=== PATIENT | female | born 1950 | race Caucasian/White ===

== ENCOUNTER 2017-07-01 13:32 | Inpatient (IN) | payer MEDICARE ==
[~2017-07-01] VITALS: Ht 165.1 cm; Wt 83.4 kg
[~2017-07-01 13:32] MED LIST: ALPR1TAB10 PO; CARV3.122 PO; CETI10TA18 PO; CHOL200040 PO; CLIN300C8 PO; HYDR-3240 PO; IBUP-1221 PO; IBUP-1222 PO; LACT1CAP4 PO; LEVO50TA5 PO; LORA-446 PO; LORA10TA62 PO; OMEP-110 PO; ONDA4TAB7 PO; PARO20TA4 PO; PHEN100C PO; PHEN300C4 PO; POLY17PO5 PO; PRED20TA PO; VERA180C2 PO; VERA180T56 PO; ZOLP5TAB6 PO
[2017-07-01] MEDS ORDERED: SODIUM CHLORIDE FLUSH 10ML SYR IVF ONE (14:30)
[2017-07-01] MEDS ORDERED: METOCLOPRAMIDE 5 MG/ML, 2ML IVPush ONE (14:30)
[2017-07-01] MEDS ORDERED: SODIUM CHLORIDE 0.9% 1,000ML IVBOLUS ONE (14:30)
[2017-07-01] MEDS ORDERED: DIPHENHYDRAMINE 50 MG/ML, 1ML IVPush ONE (14:30)
[2017-07-01] MEDS ORDERED: METOCLOPRAMIDE 5 MG/ML, 2ML ONE (14:49)
[2017-07-01] MEDS ORDERED: morphine SULFATE 10 MG/ML, 1ML ONE (14:49)
[2017-07-01] MEDS ORDERED: DIPHENHYDRAMINE 50 MG/ML, 1ML ONE (14:49)
[2017-07-01 14:57] LABS: HEMOGLOBIN 15.3 g/dL (11.7-16.4); WHITE BLOOD COUNT 6.7 x10^3/uL (3.4-10)
[2017-07-01] MEDS ORDERED: morphine SULFATE 10 MG/ML, 1ML IVPush ONE (15:00)
[2017-07-01 15:11] LABS: ASPARTATE AMINO TRANSFERASE 14 U/L (15-37); BLOOD UREA NITROGEN 13 mg/dL (7-18)
[2017-07-01 15:22] LABS: IS PT STATUS REG ER OR PRE ER? YES
[2017-07-01] MEDS ORDERED: NITROGLYCERIN 0.4 MG BOTTLE (25 TABS) SL PRN (18:00)
[2017-07-01] MEDS ORDERED: KETOROLAC 30 MG/1 ML IVPush PRN (18:00)
[2017-07-01] MEDS ORDERED: BISACODYL 10 MG SUPP PR PRN (18:00)
[2017-07-01] MEDS ORDERED: ACETAMINOPHEN 325 MG TABLET PO PRN (18:00)
[2017-07-01] MEDS ORDERED: POLYETHYLENE GLYCOL 17 GM PACKET PO PRN ×2 (18:00)
[2017-07-01] MEDS ORDERED: ONDANSETRON 4 MG TABLET PO PRN (18:00)
[2017-07-01] MEDS ORDERED: morphine SULFATE 10 MG/ML, 1ML IVPush PRN (18:00)
[2017-07-01 19:00] VITALS: BP 113/71
[2017-07-01] MEDS ORDERED: METHOCARBAMOL 750 MG TABLET PO PRN (19:00)
[2017-07-01] MEDS: CARVEDILOL 6.25 MG TABLET PO SCH (19:46)
[2017-07-01] MEDS: HEPARIN 5,000 UNITS/ML, 1ML SQ SCH (19:46)
[2017-07-01] MEDS ORDERED: OMEG1CAP6 PO (20:56)
[2017-07-01] MEDS ORDERED: CALC-60 PO (20:56)
[2017-07-01] MEDS ORDERED: HYDR25TA11 PO (20:56)
[2017-07-01] MEDS ORDERED: BACL20TA PO (20:56)
[2017-07-01] MEDS ORDERED: MULT-658 PO (20:56)
[2017-07-01] MEDS ORDERED: HYDR-3237 PO (20:56)
[2017-07-01 21:26] LABS: IS PT STATUS REG ER OR PRE ER? NO
[2017-07-01] MEDS: SODIUM CHLORIDE FLUSH 10ML SYR IVF SCH (22:02)
[2017-07-01] MEDS: ONDANSETRON ODT 4 MG PO PRN (22:03)
[2017-07-01] MEDS: HYDROcodone/APAP 5/325 TABLET PO PRN (22:34)
[2017-07-02 02:00] VITALS: BP 114/76
[2017-07-02] MEDS: HEPARIN 5,000 UNITS/ML, 1ML SQ SCH ×3 (02:10→18:05)
[2017-07-02 02:49] LABS: HEMOGLOBIN 13.6 g/dL (11.7-16.4); WHITE BLOOD COUNT 5.7 x10^3/uL (3.4-10)
[2017-07-02 03:03] LABS: BLOOD UREA NITROGEN 11 mg/dL (7-18)
[2017-07-02 03:06] LABS: IS PT STATUS REG ER OR PRE ER? NO
[2017-07-02 03:08] LABS: ASPARTATE AMINO TRANSFERASE 17 U/L (15-37)
[2017-07-02] MEDS: CARVEDILOL 6.25 MG TABLET PO SCH ×2 (05:28→18:05)
[2017-07-02 07:45] VITALS: BP 107/70
[2017-07-02] MEDS ORDERED: REGADENOSON 0.4 MG/5 ML SYRINGE ONE (08:03)
[2017-07-02] MEDS: PAROXETINE 20 MG TABLET PO SCH (08:16)
[2017-07-02] MEDS: LACTOBACILLUS CHEW TABLET PO SCH (08:16)
[2017-07-02] MEDS: SENNA/DOCUSATE TABLET PO SCH (08:16)
[2017-07-02] MEDS: CHOLECALCIFEROL 1,000 UNIT TABLET PO SCH (08:17)
[2017-07-02] MEDS: LEVOTHYROXINE 50 MCG TABLET PO SCH (08:17)
[2017-07-02] MEDS: PHENYTOIN 100 MG CAPSULE PO SCH (08:17)
[2017-07-02] MEDS: CETIRIZINE 10 MG TABLET PO SCH (08:17)
[2017-07-02] MEDS: SODIUM CHLORIDE FLUSH 10ML SYR IVF SCH ×2 (08:17→20:21)
[2017-07-02] MEDS: ONDANSETRON ODT 4 MG PO PRN (11:58)
[2017-07-02 12:05] VITALS: BP 135/84
[2017-07-02] MEDS: KETOROLAC 30 MG/1 ML IVPush SCH ×2 (17:00→20:23)
[2017-07-02 17:40] LABS: HEMATOCRIT 42.4 % (34.6-47.8); HEMOGLOBIN 14.4 g/dL (11.7-16.4)
[2017-07-02] MEDS: METHOCARBAMOL 750 MG TABLET PO SCH ×2 (18:05→20:22)
[2017-07-02 19:19] VITALS: BP 114/75
[2017-07-02] MEDS: HYDROcodone/APAP 5/325 TABLET PO PRN (20:22)
[2017-07-03 02:43] VITALS: BP 112/71
[2017-07-03] MEDS: HEPARIN 5,000 UNITS/ML, 1ML SQ SCH ×3 (03:01→17:55)
[2017-07-03] MEDS: CARVEDILOL 6.25 MG TABLET PO SCH ×2 (05:19→17:55)
[2017-07-03 05:57] LABS: BLOOD UREA NITROGEN 13 mg/dL (7-18)
[2017-07-03 07:07] VITALS: BP 102/68
[2017-07-03] MEDS: LEVOTHYROXINE 50 MCG TABLET PO SCH (09:00)
[2017-07-03] MEDS: KETOROLAC 30 MG/1 ML IVPush SCH (09:00)
[2017-07-03] MEDS: ONDANSETRON ODT 4 MG PO PRN ×2 (09:14→17:54)
[2017-07-03] MEDS: CETIRIZINE 10 MG TABLET PO SCH (09:14)
[2017-07-03] MEDS: METHOCARBAMOL 750 MG TABLET PO SCH ×3 (09:14→19:53)
[2017-07-03] MEDS: PAROXETINE 20 MG TABLET PO SCH (09:15)
[2017-07-03] MEDS: PHENYTOIN 100 MG CAPSULE PO SCH (09:15)
[2017-07-03] MEDS: LACTOBACILLUS CHEW TABLET PO SCH (09:15)
[2017-07-03] MEDS: CHOLECALCIFEROL 1,000 UNIT TABLET PO SCH (09:15)
[2017-07-03] MEDS: SENNA/DOCUSATE TABLET PO SCH (09:15)
[2017-07-03] MEDS: SODIUM CHLORIDE FLUSH 10ML SYR IVF SCH ×2 (09:17→19:54)
[2017-07-03 17:51] VITALS: BP 119/79
[2017-07-03 18:48] VITALS: BP 107/69
[2017-07-03] MEDS: HYDROcodone/APAP 5/325 TABLET PO PRN (21:26)
[2017-07-04 01:22] VITALS: BP 102/63
[2017-07-04] MEDS: HEPARIN 5,000 UNITS/ML, 1ML SQ SCH ×2 (01:45→11:54)
[2017-07-04] MEDS: CARVEDILOL 6.25 MG TABLET PO SCH (05:20)
[2017-07-04 08:29] VITALS: BP 123/85
[2017-07-04] MEDS: PAROXETINE 20 MG TABLET PO SCH (08:37)
[2017-07-04] MEDS: SODIUM CHLORIDE FLUSH 10ML SYR IVF SCH (08:37)
[2017-07-04] MEDS: LACTOBACILLUS CHEW TABLET PO SCH (08:37)
[2017-07-04] MEDS: PHENYTOIN 100 MG CAPSULE PO SCH (08:37)
[2017-07-04] MEDS: CETIRIZINE 10 MG TABLET PO SCH (08:38)
[2017-07-04] MEDS: METHOCARBAMOL 750 MG TABLET PO SCH (08:38)
[2017-07-04] MEDS: SENNA/DOCUSATE TABLET PO SCH (08:38)
[2017-07-04] MEDS: CHOLECALCIFEROL 1,000 UNIT TABLET PO SCH (08:38)
[2017-07-04] MEDS: LEVOTHYROXINE 50 MCG TABLET PO SCH (08:38)
[2017-07-04] MEDS: HYDROcodone/APAP 5/325 TABLET PO PRN (12:24)
[2017-07-04] MEDS: ONDANSETRON ODT 4 MG PO PRN (12:24)
[2017-07-04 12:40] VITALS: BP 107/69
== END 2017-07-04 15:21 | disposition home or self-care (01) | DRG 205 ==
LOC: ED 14:19 → EDIP 16:57 → 5SO 18:40 → DCLOUNGE 07-04 15:00
PROVIDERS: ADMIT Hospitalist; ATTEND Hospitalist
DX: M94.0 Chondrocostal junction syndrome [Tietze] (principal); G93.49 Other encephalopathy; J96.10 Chronic respiratory failure, unspecified whether with hypoxia or hypercapnia; E03.9 Hypothyroidism, unspecified; G40.909 Epilepsy, unspecified, not intractable, without status epilepticus; I10 Essential (primary) hypertension; Z82.49 Family history of ischemic heart disease and other diseases of the circulatory system; Z82.5 Family history of asthma and other chronic lower respiratory diseases; Z83.3 Family history of diabetes mellitus; E78.5 Hyperlipidemia, unspecified; G47.30 Sleep apnea, unspecified; I35.8 Other nonrheumatic aortic valve disorders; Z88.6 Allergy status to analgesic agent; Z88.3 Allergy status to other anti-infective agents; G43.909 Migraine, unspecified, not intractable, without status migrainosus
CPT/HCPCS: 36415; 70450; 71010; 78452; 80048; 80053; 80061; 80185; 81003; 82306; 82607; 82746; 83735; 84439; 84443; 84484; 85025; 85379; 85610; 85730; 93005; 93017; 93306; 95819; 96374; 96375; J1644; J2785; Q0162; A9502; C9898; J1200; J2270; J2765; J7030